=== PATIENT | female | born 1995 | race Caucasian/White ===

== ENCOUNTER 2020-11-17 14:30 | Emergency (ER) | payer SELFPAY ==
[2020-11-17 14:42] VITALS: BP 118/81; BP 141/85; PULSE 118; PULSE 98; RESP 16; TEMP 36.6; O2SAT 96; O2SAT 98; BMI 19.3
--- NOTE | 2020-11-17 15:08 | ED_ITS ---
HPI - Alcohol General Chief Complaint: ETOH/Substance Use Stated Complaint: DRUG USE Time Seen by Provider: 11/17/20 14:56 Source: patient and EMS Mode of arrival: EMS History of Present Illness HPI narrative: 25-year-old female with a past medical history of substance abuse brought in by ambulance s/p accidental overdose on heroin. Patient was found sleeping in her car. Admits to using less than a bag of heroin. Also reports cocaine and marijuana use. Denies EtOH. Denies SI/HI. Reports was recently sober/drug free. Denies recent fall/trauma Last drink: Just prior to admission Related Data Allergies Allergy/AdvReac Type Severity Reaction Status Date / Time No Known Allergies Allergy Verified 11/17/20 14:57 Review of Systems Review of Systems: Constitutional: Fatigue, No Malaise, +lethargy Cardiovascular: No Chest Pain, No SOB Respiratory: No Cough Gastrointestinal: No Nausea, No Vomiting, No Abdominal pain Skin: No Skin Lesions, No rash Psych: No Anxiety/Panic, No Depression, No SI/HI/AH/VH, No Social Issues Yes all other systems are reviewed and are negative [facility] Past Medical History Attestation statement: The following information was validated with the patient. Source: nursing notes reviewed Medical History (Updated 11/17/20 @ 15:17 by JOHN Mccain) Substance abuse Social History Social History Advance Directives: No Advance Directives Information Provided: No Physical Exam Vital Signs: Vital Signs: Last Vital Signs Temp 98 F 11/17/20 14:42 Pulse 98 11/17/20 14:42 Resp 16 11/17/20 14:42 BP 118/81 11/17/20 14:42 Pulse Ox 96 11/17/20 14:42 Body Mass Index 19.3 Const: Other: Tearful, under the influence General: cooperative and lethargic Orientation/consciousness: patient oriented x3 and lethargic Limitations: no limitations HENMT: Head: Yes normal to inspection and Yes atraumatic Ears: hearing grossly normal bilaterally General nose exam: Normal external nose present Face and sinus: Yes normal facial exam Eyes: General: appearance normal, both eyes and all related structures Pupils: reactive and Pinpoint pupils bilaterally EOM: EOMs intact bilaterally Neck: Neck: Yes normal visual inspection and Yes no meningeal signs Resp: Effort & Inspection: normal respiratory effort Cardio: Rate: regular rate GI: Inspection: Yes normal to inspection Palpation (GI): Soft to palpation, nontender, no guarding and not rigid Skin: Rashes: no rashes Wounds: no wounds Neuro: Other: Lethargic/sleepy. Arousable to voice General: patient oriented x3, tone normal, moves all extremities, no meningeal signs and no focal motor deficits Extrem: General: Yes normal to inspection Course Course Course Narrative: - 1700-- ED care transferred to MARIA E Kiran pending clinical sobriety and d/c MDM - Alcohol MDM Narrative Medical decision making narrative: 25-year-old female with a past medical history of substance abuse brought in by ambulance s/p accidental overdose on heroin. On exam VSS, NAD, under the influence, CLEMONS, atraumatic, drowsy, alert to voice. Will observe and reassess for clinical sobriety Discharge Plan Discharge Clinical Impression: Accidental heroin overdose Patient Disposition: Home, Self-Care Instructions: Polysubstance Abuse (ED) Additional Instructions: Do not take drugs or drink alcohol as it can kill you Follow-up with your primary care doctor and [facility] as needed Referrals: Physician,Unknown [Primary Care Provider] - 2 days [facility] [Physician] - 2 days
--- NOTE | 2020-11-17 15:29 | PC.NURSE ---
nodding off but arousable to light voice. skin pwd. puppils 3mm.
--- NOTE | 2020-11-17 16:08 | PC.NURSE ---
pt continues drowsy, but is awake and conversational at times she is taking in small amounts of fluids and a sandwich
[2020-11-17 17:13] VITALS: BP 117/72; PULSE 91; RESP 16; O2SAT 100
--- NOTE | 2020-11-17 18:24 | PC.NURSE ---
This patients step father arrived to the ED WR as pt was discharged. According to the step father he was contacted by the pts father that she was here. He was visible agitated regarding her discharge. He assumed she was on a 72 hr hold in the ED. No personal information was shared about the patient and her visit here today. He was educated on the ED process regarding substance abuse.
== END 2020-11-17 18:25 | disposition home or self-care (01) ==
PROVIDERS: Emergency Provider Internal Medicine
DX: T40.1X1A Poisoning by heroin, accidental (unintentional), initial encounter (principal); Y92.9 Unspecified place or not applicable; F11.10 Opioid abuse, uncomplicated; Z71.51 Drug abuse counseling and surveillance of drug abuser
CPT/HCPCS: 99283; 99284